=== PATIENT | male | born 1955 | race American Indian/Alaskan Native ===

== ENCOUNTER 2019-03-14 11:38 | Day surgery (SDC) | payer BC ==
[~2019-03-14 11:38] MED LIST: ANCEF/STERILE WATER 2 GM/20 ML IV NR
[2019-03-14] MEDS ORDERED: ZOFRAN IV PRN (12:12)
[2019-03-14] MEDS ORDERED: SUBLIMAZE IV PRN (12:12)
--- NOTE | 2019-03-14 12:14 | Anesthesia Day of Surgery ---
Anesthesia Day of Surgery - Day of Surgery Patient Examined: Yes Patient H&P Reviewed: Yes Patient is NPO: Yes
--- NOTE | 2019-03-14 12:19 | Anesthesia Consultation ---
Anesthesia Consult and Med Hx Date of service: 03/14/19 - Airway Anesthetic Teeth Evaluation: Good, Bridges (LOOSE; Lower left) ROM Head & Neck: Adequate Mental/Hyoid Distance: Adequate Mallampati Class: Class II Intubation Access Assessment: Good - Pre-Operative Health Status ASA Pre-Surgery Classification: ASA2 Proposed Anesthetic Plan: General - Pulmonary Hx Smoking: No Hx Sleep Apnea: No (RAHAT PRE SCREEN HIGH RISK) - Cardiovascular System Hx Hypertension: Yes (X 10 YRS. Active, runner)
[2019-03-14] MEDS ORDERED: LACTATED RINGERS 1,000 ML IV SCH (13:00)
[2019-03-14] MEDS ORDERED: DILAUDID ONE (14:48)
[2019-03-14] MEDS ORDERED: DIPRIVAN 10 MG/ML IV ONE (14:48)
[2019-03-14] MEDS ORDERED: XYLOCAINE MPF 2% ONE (14:49)
[2019-03-14] MEDS ORDERED: ZOFRAN ONE (15:53)
--- NOTE | 2019-03-14 16:15 | Short Stay Summary ---
Short Stay Documentation Date of service: 03/14/19 - History H&P: obtained from office - Allergies and Medications Current Medications: Allergies lisinopril Allergy (Verified 03/13/19 11:06) COUGH Home Medications Medication Instructions Recorded Confirmed Last Taken Type Ibuprofen [Motrin] 600 mg PO Q8H PRN 03/13/19 03/13/19 03/12/19 History Losartan [Cozaar] 100 mg PO QDAY 03/13/19 03/14/19 03/14/19 07:00 History Multivit-Min/FA/Lycopen/Lutein 1 each PO DAILY 03/13/19 03/14/19 03/13/19 09:00 History [Centrum Silver Men Tablet] [place]-3/Dha/Epa/Fish Oil [Fish Oil 1 each PO DAILY 03/13/19 03/14/19 03/13/19 09 :00 History 1,200 mg Softgel] Omega3,5,6,7,9 No.1/[place] Oil 1 each PO DAILY 03/13/19 03/14/19 03/13/19 09:00 History [Complete [place] Softgel] Tamsulosin [Flomax] 0.4 mg PO QDAY 03/13/19 03/14/19 03/14/19 07:00 History Active Medications Cefazolin Sodium (Ancef/Sterile Water 2 Gm/20 Ml) 2 gm IV PREOP NR Stop: 03/14/19 23:59 Fentanyl (Sublimaze) 50 mcg IV Q5MIN PRN PRN Reason: Pain , Severe (7-10) Stop: 03/14/19 23:59 Lactated Ringer's (Lactated Ringers) 1,000 mls @ 150 mls/hr IV DIRECT JULIUS Last Admin: 03/14/19 12:40 Dose: 150 mls/hr Documented by: Ondansetron HCl (Zofran) 4 mg IV ONCE PRN PRN Reason: Nausea And Vomiting - Brief post op/procedure progress note Date of procedure: 03/14/19 Pre-op diagnosis: left renal stone - 2cm Post-op diagnosis: same Procedure: eswl---staged Anesthesia: GETA Surgeon: ACE AYERS Condition: stable - Hospital course Hospital course: mere alberto, post op info on chart - Disposition Condition at discharge: Stable Disposition: DC-01 TO HOME OR SELFCARE Short Stay Discharge Plan Follow up with: JACK TRACY MD [Primary Care Provider] - 7 Days
[2019-03-14] MEDS ORDERED: NORCO 5/325 PO PRN (16:35)
--- NOTE | 2019-03-14 18:47 | Operative Report ---
PREOPERATIVE DIAGNOSIS: Left renal stone, 2 cm. POSTOPERATIVE DIAGNOSIS: Left renal stone, 2 cm. PROCEDURE: Left extracorporal shock wave lithotripsy staged procedure. SURGEON: Randolph Patel MD ANESTHESIA: General. ESTIMATED BLOOD LOSS: Minimal. FLUIDS: Crystalloid. COMPLICATIONS: No complications. INDICATIONS: This 64-year-old gentleman seen in the office, had some left flank pain. CT of abdomen and pelvis revealed a 2 cm left renal stone. We discussed options including open versus percutaneous nephrolithotomy. He wants to proceed with lithotripsy first to see if it is soft stone. Risks, benefits, and complications were explained. DESCRIPTION OF PROCEDURE: The patient was taken to the operative suite, placed in a supine position. After adequate general anesthesia, he was placed in a supine position. His stone was localized in 2 planes using fluoroscopy. Extracorporal shock wave lithotripsy was administered with a maximum kV of 7 and 2500 shocks. A 5-minute renal pause after 200 shocks was performed. We saw some fragmentation of the stone. He was extubated and taken to recovery room. He will go home on [place] and follow up in the office. JOB# [id number] REDD/PRADIP
[2019-03-14 23:11] VITALS: BP 106/58
--- NOTE | 2019-03-15 12:17 | Post Anesthesia Evaluation ---
- Post Anesthesia Evaluation Patient Participated: Yes Airway Patent: Yes Stable Respiratory Function: Yes Nausea/Vomiting: No Temp > 96.8F: Yes Pain Manageable: Yes Adequeate Hydration: Yes Anesthesia Complications: No
== END 2019-03-14 17:40 | disposition home or self-care (01) ==
LOC: OR 11:38
PROVIDERS: ATTEND Urology
DX: N20.0 Calculus of kidney (principal); I10 Essential (primary) hypertension; Z85.46 Personal history of malignant neoplasm of prostate; Z80.8 Family history of malignant neoplasm of other organs or systems; Z79.899 Other long term (current) drug therapy; Z88.8 Allergy status to other drugs, medicaments and biological substances; Z98.890 Other specified postprocedural states
CPT/HCPCS: 50590; J0690; J1170; J2405; J2704; J7120